=== PATIENT | male | born 1930 | race Caucasian/White ===

== ENCOUNTER 2017-06-23 07:46 | Inpatient (IN) | payer OTHER, BC ==
[2017-06-23] VITALS (11 sets, daily range): BP systolic 116–144; BP diastolic 57–78
[~2017-06-23] VITALS: Ht 170.2 cm; Wt 81.2 kg
[~2017-06-23 07:46] MED LIST: COUMADIN2.5 MG PO; LANSOPRAZOLE30 MG PO; METFORMIN HCL500 MG PO; TENORMIN25 MG PO
[2017-06-23] MEDS ORDERED: LANSOPRAZOLE30 MG PO (08:22)
[2017-06-23] MEDS ORDERED: PROSCAR5 MG PO (08:24)
[2017-06-23] MEDS ORDERED: ADULT ASPIRIN R81 MG PO (08:25)
[2017-06-23 09:06] LABS: BASOPHIL (%) 0.2 % (0-1); EOSINOPHIL (%) 0.7 % (0-5); EOSINOPHIL COUNT 0.1 K/uL (0-0.3); HEMATOCRIT 46.2 % (38.0-50.0); HEMOGLOBIN 16.1 G/DL (12.5-16.6); IMMATURE GRANULOCYTE (%) 0.4 % (0.0-0.7); LYMPHOCYTE (%) 11.8 % (15-42); MCH 32.6 PG (29.0-34.0); MCHC 34.8 G/DL (30.0-36.0); MCV 93.5 FL (86-99); MONOCYTE COUNT 0.6 K/uL (0-0.8); NEUTROPHIL (%) 79.9 % (45-76); NEUTROPHIL COUNT 6.7 K/uL (1.8-6.4); PLATELET COUNT 141 K/uL (156-360); RBC DIS.WIDTH-CV 12.5 % (11.8-14.6); RED BLOOD COUNT 4.94 M/uL (4.00-5.50); WHITE BLOOD COUNT 8.3 K/uL (4.1-10.2)
[2017-06-23 09:15] LABS: CHLORIDE 102 mEq/L (99-109); POTASSIUM 4.8 mEq/L (3.7-5.4); SODIUM 138 mEq/L (136-147)
[2017-06-23 09:16] LABS: GLUCOSE 142 mg/dL (70-99)
[2017-06-23 09:20] LABS: CREATININE 0.8 mg/dL (0.6-1.3); GFR ESTIMATE (CALCULATED) > 59 mL/min/ (58.99-99999)
[2017-06-23 09:21] LABS: UREA NITROGEN (BUN) 16 mg/dL (9-23)
[2017-06-23 09:27] LABS: INTER. NORMALIZED RATIO 1.1
[2017-06-23 15:32] LABS: TROP-I INTERPRETATION NEGATIVE; TROPONIN-I < 0.01 ng/mL (0.0-0.30)
[2017-06-24] VITALS (7 sets, daily range): BP systolic 124–144; BP diastolic 69–88
[2017-06-24 04:50] LABS: BASOPHIL (%) 0.4 % (0-1); EOSINOPHIL (%) 1.8 % (0-5); EOSINOPHIL COUNT 0.1 K/uL (0-0.3); HEMATOCRIT 42.7 % (38.0-50.0); HEMOGLOBIN 14.9 G/DL (12.5-16.6); IMMATURE GRANULOCYTE (%) 0.3 % (0.0-0.7); LYMPHOCYTE (%) 20.8 % (15-42); LYMPHOCYTE COUNT 1.4 K/uL (1.0-2.8); MCH 32.3 PG (29.0-34.0); MCHC 34.9 G/DL (30.0-36.0); MCV 92.4 FL (86-99); MONOCYTE (%) 9.4 % (3-12); MONOCYTE COUNT 0.6 K/uL (0-0.8); NEUTROPHIL (%) 67.3 % (45-76); NEUTROPHIL COUNT 4.6 K/uL (1.8-6.4); PLATELET COUNT 136 K/uL (156-360); RBC DIS.WIDTH-CV 12.5 % (11.8-14.6); RBC DIS.WIDTH-SD 42.1 % (39-53); RED BLOOD COUNT 4.62 M/uL (4.00-5.50); WHITE BLOOD COUNT 6.8 K/uL (4.1-10.2)
[2017-06-24 05:01] LABS: CHLORIDE 107 mEq/L (99-109); SODIUM 141 mEq/L (136-147)
[2017-06-24 05:07] LABS: CREATININE 0.8 mg/dL (0.6-1.3); GFR ESTIMATE (CALCULATED) > 59 mL/min/ (58.99-99999)
[2017-06-24 05:08] LABS: UREA NITROGEN (BUN) 17 mg/dL (9-23)
[2017-06-24 05:09] LABS: GLUCOSE 98 mg/dL (70-99)
== END 2017-06-24 12:16 | disposition home or self-care (01) | DRG 87 ==
LOC: EME 07:46 → EDOF 09:19 → ENRESERV 09:20 → CANRESERV 09:20 → ENRESERV 09:37 → EDOF 09:41 → 4WEST 10:46
PROVIDERS: Emergency Medicine; Internal Medicine Critical Care Medicine
DX: S06.5X0A Traumatic subdural hemorrhage without loss of consciousness, initial encounter (principal); S00.211A Abrasion of right eyelid and periocular area, initial encounter; W18.30XA Fall on same level, unspecified, initial encounter; R55 Syncope and collapse; R42 Dizziness and giddiness; R13.10 Dysphagia, unspecified; E11.9 Type 2 diabetes mellitus without complications; I10 Essential (primary) hypertension; K21.9 Gastro-esophageal reflux disease without esophagitis; Z87.891 Personal history of nicotine dependence; Z85.038 Personal history of other malignant neoplasm of large intestine; Z82.49 Family history of ischemic heart disease and other diseases of the circulatory system
CPT/HCPCS: 70450; 80048; 82948; 84484; 85025; 85610; 87641; 93005; 99281; 99285; J1815; J7030